=== PATIENT | female | born 1975 | race African-American/Black ===

== ENCOUNTER → 2016-07-24 | Outpatient (CLI) | payer BC | LOC: RAD 10:26 | PROVIDERS: ATTEND Internal Medicine Hematology & Oncology | DX: C50.412 Malignant neoplasm of upper-outer quadrant of left female breast (principal) | CPT/HCPCS: 78306; A9503; Q9969 ==

== ENCOUNTER 2016-07-25 08:11 | Day surgery (SDC) | payer BC ==
[2016-07-24 10:52] LABS: HEMATOCRIT 38.2 % (36.0-47.0); HEMOGLOBIN 12.8 g/dL (12.0-15.5); HGB HCT DIFFERENCE 0.2; MEAN CORPUSCULAR HEMOGLOBIN 30.9 pg (27.0-33.4); MEAN CORPUSCULAR HGB CONC 33.6 g/dL (32.0-36.0); MEAN CORPUSCULAR VOLUME 92 fl (80-97); RED BLOOD COUNT 4.16 10^6/uL (3.72-5.28); RED CELL DISTRIBUTION WIDTH 13.2 % (11.5-14.0); WHITE BLOOD COUNT 6.9 10^3/uL (4.0-10.5)
[~2016-07-25 08:11] MED LIST: ACETAMINOPHEN 325 MG TABLET PO PRN; FENTANYL CITRATE INJ/PF 100 MCG/2 ML AMPUL ONE; LIDOCAINE 0.5% INJ-PF (5 MG/ML) 50 ML SDV INJ PRN; MIDAZOLAM 2 MG/2 ML INJ ONE; PROPOFOL INJ 200 MG/20 ML VIAL IV ONE; RINGERS SOLUTION,LACTATED 1,000 ML IV PRN; VANCOMYCIN HCL 1,000 MG in DEXTROSE 5%-WATER 250 ML IV PRN
[2016-07-25] MEDS ORDERED: BUPIVACAINE HCL 0.25 % INJ/PF (2.5 MG/1 ML) 30 ML VIAL ONE (08:12)
[2016-07-25] MEDS ORDERED: MIDAZOLAM 2 MG/2 ML INJ ONE (09:41)
[2016-07-25] MEDS ORDERED: DIPHENHYDRAMINE HCL 50 MG/ML VIAL IV PRN (10:33)
[2016-07-25] MEDS ORDERED: FENTANYL CITRATE INJ/PF 100 MCG/2 ML AMPUL IV PRN ×3 (10:33)
[2016-07-25] MEDS ORDERED: MORPHINE SULFATE 10 MG/ML INJ IV PRN (10:33)
[2016-07-25] MEDS ORDERED: MEPERIDINE HCL/PF INJ 25 MG/1 ML DISP.SYRIN IV PRN (10:33)
[2016-07-25] MEDS ORDERED: PROMETHAZINE HCL INJ 25 MG/1 ML VIAL IV PRN ×2 (10:33)
--- NOTE | 2016-07-25 11:18 | Operative Report ---
Operative Report DATE OF SURGERY: 07/25/16 PREOPERATIVE DIAGNOSIS: Left breast cancer POSTOPERATIVE DIAGNOSIS: Left breast cancer OPERATION: Right subclavian single-lumen power port placement (permanent implanted central venous access placed via fluoroscopic guidance) SURGEON: SILVIA MARSHALL ANESTHESIA: LMAC TISSUE REMOVED OR ALTERED: None COMPLICATIONS: None ESTIMATED BLOOD LOSS: minimal INTRAOPERATIVE FINDINGS: None PROCEDURE: Informed consent was obtained. Patient was brought to the operating room placed operating table in the supine position. The procedure was done under LMAC. Patient's right neck and chest was prepped and draped in usual sterile fashion. Local anesthetic was administered. The right subclavian vein was entered without difficulty. Guidewire was placed into the central circulation under fluoroscopic guidance. A subcutaneous pocket was created in the patient' s right upper chest. Using a tunneling device single-lumen catheter was then tunneled between the 2 incisions. Introducer catheter was placed via the guidewire. The single lumen catheter was then fed into the central circulation through the introducer catheter under fluoroscopic guidance. The tip resided at the superior vena cava right atrial junction. The catheter was then attached to the PowerPort device which was then implanted into the subcutaneous pocket. The Port-A-Cath the which her blood and flushed easily. Hemostasis appeared good. The wounds were closed with deep dermal interrupted Vicryl sutures, followed by running subcuticular Monocryl suture. Patient tolerated procedure well with no apparent complications and was taken to the recovery area in stable condition. Stat portable chest x-ray was ordered in the recovery room.
[2016-07-25] MEDS ORDERED: RINGERS SOLUTION,LACTATED 1,000 ML IV PRN (11:22)
[2016-07-25] MEDS ORDERED: ONDANSETRON HCL INJ/PF 4 MG/2 ML SDV IV PRN (11:22)
[2016-07-25] MEDS ORDERED: OXYCODONE-ACETAMINOPHEN 5-325 MG TABLET PO PRN (11:22)
--- NOTE | 2016-07-25 11:22 | PDOC DISCHARGE SUMMARY ---
Discharge Summary (SDC) - Discharge Final Diagnosis: Left breast cancer. Date of Surgery: 07/25/16 Discharge Date: 07/25/16 Condition: Good Treatment or Instructions: Underwent right subclavian PowerPort placement. May discharge patient home when met discharge criteria. Follow-up with me in 2 weeks. Stay active but avoid strenuous activity. May shower in 2 days. Keep Steri-Strips on. May use Port-A-Cath. Prescriptions: Oxycodone HCl/Acetaminophen [Percocet 5-325 mg Tablet] 1 tab PO ASDIR PRN #15 tablet PRN Reason: Discharge Diet: As Tolerated Discharge Activity: Activity As Tolerated - Stay active but avoid strenuous activity. Report the Following to Your Physician Immediately: Fever over 101 Degrees, Unusual Bleeding, Redness, Drainage-Foul Smelling
[2016-07-25 12:58] VITALS: BP 134/101
== END 2016-07-25 13:10 | disposition home or self-care (01) ==
LOC: OROUT 08:11
PROVIDERS: ATTEND Surgery
PROC: 05H533Z Insertion of Infusion Device into Right Subclavian Vein, Percutaneous Approach (ICD-10-PCS; principal; 2016-07-25 09:45)
DX: C50.912 Malignant neoplasm of unspecified site of left female breast (principal); I10 Essential (primary) hypertension; E66.9 Obesity, unspecified; Z88.0 Allergy status to penicillin; Z79.899 Other long term (current) drug therapy; Z68.41 Body mass index [BMI] 40.0-44.9, adult
CPT/HCPCS: 36415 ×2; 84132; 85027; 86300; 71020; 71010; 77001; 36561; C1788; J2250; J3010; J7060; J2704; J3370; J1642; 532

== ENCOUNTER → 2016-07-29 | Outpatient (CLI) | payer BC | LOC: RAD 08:13 | PROVIDERS: ATTEND Specialist | DX: C50.412 Malignant neoplasm of upper-outer quadrant of left female breast (principal) | CPT/HCPCS: 71260; 74177; 82565 ==

== ENCOUNTER → 2016-08-01 | Outpatient (CLI) | payer BC ==
--- NOTE | 2016-08-04 13:19 | XCELERA REPORT ---
[address] [address] Transthoracic Echocardiogram Report Name: MASOOD LOPEZ Age: 40 yrs Gender: Female : 1975 Patient Status: Outpatient Patient Location: Study Date: 08/01/2016 03:12 PM Height: 64 in Weight: 260 lb BSA: 2.2 m2 Procedure: A complete two-dimensional transthoracic echocardiogram was performed (2D, M-mode, spectral and color flow Doppler). The study was technically adequate with some images being suboptimal in quality. Reason For Study: EVAL FOR USE OF CHEMO Ordering Physician: ROMAN TAMEZ Performed By: Radha Becerra Interpretation Summary The left ventricular ejection fraction is normal. There is mild concentric left ventricular hypertrophy. The left ventricle is grossly normal size. Doppler measurements suggest impaired left ventricular relaxation, which is associated with grade I/IV or mild diastolic dysfunction Wall motion cannot be accurately commented on, but no definite regional wall motion abnormalities noted. The right ventricle is grossly normal size. The right ventricular systolic function is normal. The right atrium is normal. The left atrial size is normal. There is no mitral valve stenosis. There is a trace amount of mitral regurgitation There is no aortic valve stenosis No aortic regurgitation is present. There is a trace or physiologic amount of tricuspid regurgitation Tricuspid regurgitation jet envelope not well defined to measure RV systolic pressure accurately. The aortic root is not well visualized but is probably normal size. The inferior vena cava appeared normal and decreased > 50% with respiration (RAP 5-10 mmHg) There is no pericardial effusion. MMode/2D Measurements \T\ Calculations RVDd: 2.5 cm LVIDd: 3.5 cm FS: 34.9 % Ao root diam: 3.2 cm IVSd: 1.2 cm LVIDs: 2.3 cm EDV(Teich): 50.9 ml LVPWd: 1.2 cm ESV(Teich): 17.7 ml Ao root area: 8.0 cm2 EF(Teich): 65.2 % LA dimension: 2.5 cm LVOT diam: 2.4 cm LVOT area: 4.5 cm2 Doppler Measurements \T\ Calculations MV E max tj: MV P1/2t max tj: Ao V2 max: LV V1 max P.3 cm/sec 68.3 cm/sec 119.9 cm/sec 3.6 mmHg MV A max tj: MV P1/2t: 52.0 msec Ao max PG: LV V1 max: 61.4 cm/sec MVA(P1/2t): 4.2 cm2 5.7 mmHg 95.0 cm/sec MV E/A: 1.1 MV dec slope: IBIS(V,D): 3.6 cm2 384.7 cm/sec2 MV dec time: 0.18 sec PA V2 max: 70.6 cm/sec PA max P.0 mmHg Left Ventricle The left ventricle is grossly normal size. There is mild concentric left ventricular hypertrophy. The left ventricular ejection fraction is normal. Doppler measurements suggest impaired left ventricular relaxation, which is associated with grade I/IV or mild diastolic dysfunction. Wall motion cannot be accurately commented on, but no definite regional wall motion abnormalities noted. Right Ventricle The right ventricle is grossly normal size. There is normal right ventricular wall thickness. The right ventricular systolic function is normal. Atria The right atrium is normal. The left atrial size is normal. Interarterial septum not well visualized and not well dopplered. Cannot comment on ASD/PFO presence. Mitral Valve The mitral valve is grossly normal. There is no mitral valve stenosis. There is a trace amount of mitral regurgitation. Aortic Valve The aortic valve is grossly normal. There is no aortic valve stenosis. No aortic regurgitation is present. Tricuspid Valve The tricuspid valve is not well visualized, but is grossly normal. There is no tricuspid stenosis. There is a trace or physiologic amount of tricuspid regurgitation. Tricuspid regurgitation jet envelope not well defined to measure RV systolic pressure accurately. Pulmonic Valve The pulmonic valve is not well visualized. Great Vessels The aortic root is not well visualized but is probably normal size. The inferior vena cava appeared normal and decreased > 50% with respiration (RAP 5-10 mmHg). Effusions There is no pericardial effusion. : ROMAN TAMEZ > Jose Stoner
== END ==
LOC: SP 15:01
PROVIDERS: ATTEND Specialist
DX: Z51.11 Encounter for antineoplastic chemotherapy (principal)
CPT/HCPCS: 93306

== ENCOUNTER 2016-08-07 10:20 | Emergency (ER) | payer BC ==
--- NOTE | 2016-08-07 11:00 | ER Document Report ---
ED General - General Chief Complaint: Fever Stated Complaint: DIZZINESS Time seen by provider: 10:56 Mode of Arrival: Ambulatory Information source: Patient Notes: 40-year-old female who reports subjective fever chills yesterday and lightheadedness this morning. Patient recently diagnosed with left breast cancer with she thinks 2 positive lymph nodes. She is supposed to start chemotherapy with Dr. Tamez in the near future. She had a right chest port placed by Dr. harman July 25 and she says it was accessed for a PET scan on the . She reports at some point around that time she noticed a little bit of pus calm from surgical site just cephalad to the poor location but she has not noted any redness swelling or tenderness over the port apparatus itself. She denies cough, shortness of breath, earache, sore throat, headache, chest pain, abdominal pain, back pain, nausea, vomiting, diarrhea, dysuria, numbness weakness to extremities, or syncope Physical Exam: General: Alert, appears well. HEENT: Normocephalic. Atraumatic. PERRLA. Extraocular movements intact. Oropharynx clear. Neck: Supple. Non-tender. Respiratory: No respiratory distress. Clear and equal breath sounds bilaterally. Cardiovascular: Regular rate and rhythm. Abdominal: Normal Inspection. Soft, non-tender. No distension. Normal Bowel Sounds. Back: Non-tender. No deformity or step off. Extremities: Moves all four extremities. 2+ pulses all 4 extremities no cyanosis or edema. No Homans sign bilaterally. Neurological: Speech clear mentation normal display trimmer strength 5 out of 5 equal both upper extremities motor function 5 out of 5 equal both lower extremities Psychological: Normal affect. Normal Mood. Skin: Warm. Dry. Normal color. The right chest port site is just medial to the axilla. The palpable apparatus is nontender with no erythema warmth or swelling. Steri-Strips are still in place and these were removed allow inspection of the surgical incisions. The most proximal one has proximate 3 mm of exposed subcutaneous tissue but there is no purulence expressed. The other incisions all look almost completely healed. There is no bleeding warmth or crepitance from any of the sites. TRAVEL OUTSIDE OF THE [place] IN LAST 30 DAYS: No - Related Data Allergies/Adverse Reactions: Penicillins Allergy (Severe, Verified 07/25/16 08:21) Hives cats Allergy (Severe, Uncoded 07/25/16 08:21) sinuses dust mites Allergy (Severe, Uncoded 07/25/16 08:21) itching Past Medical History - Social History Smoking Status: Never Smoker Family History: Other - Mother with lupus Father with prostate cancer - Past Medical History Cardiac Medical History: Reports: Hx Hypertension - on meds Denies: Hx Coronary Artery Disease, Hx Heart Attack Pulmonary Medical History: Denies: Hx Asthma, Hx Bronchitis, Hx COPD, Hx Pneumonia Neurological Medical History: Denies: Hx Cerebrovascular Accident, Hx Seizures Musculoskeltal Medical History: Denies Hx Arthritis Past Surgical History: Reports: Hx Hysterectomy, Other - Gastric sleeve - Immunizations Hx Diphtheria, Pertussis, Tetanus Vaccination: No Review of Systems - Review of Systems Constitutional: See HPI EENT: denies: Ear pain, Throat pain Cardiovascular: denies: Chest pain, Syncope Respiratory: denies: Cough, Short of breath Gastrointestinal: denies: Abdominal pain, Diarrhea, Nausea, Vomiting Genitourinary: denies: Burning, Dysuria Musculoskeletal: denies: Back pain, Muscle pain Hematologic/Lymphatic: denies: Swollen glands Neurological/Psychological: denies: Weakness, Numbness Physical Exam - Vital signs Vitals: Resp 23 H 08/07/16 10:49 Course - Re-evaluation Re-evalutation: 08/07/16 13:37 Patient reports feeling well now but she remains minimally tachycardic at 105. His evidence for UTI believe the source of her fever. A recent surgical site appears healthy with no signs or symptoms of infection. Blood cultures have been sent she refused additional cultures drawn for the port. He'll be discharged on oral antibiotics struck to follow with her physician Dr. Tamez and keep her appointment with Dr. hedrick as scheduled - Vital Signs Vital signs: Temp Pulse Resp BP Pulse Ox 98.6 F 103 H 19 99/61 L 97 08/07/16 11:14 08/07/16 11:14 08/07/16 12:00 08/07/16 11:14 08/07/16 12:00 - Laboratory Result Diagrams: 08/07/16 11:00 08/07/16 11:00 Laboratory results interpreted by me: 08/07/16 08/07/16 11:00 11:46 WBC 17.7 H Seg Neutrophils % 86.7 H Lymphocytes % 5.7 L Absolute Neutrophils 15.4 H Urine Protein 100 H Urine Blood MODERATE H Urine Nitrite POSITIVE H Ur Leukocyte Esterase LARGE H Urine Ascorbic Acid 40 H - Diagnostic Test Radiology reviewed: Image reviewed, Reports reviewed Discharge - Discharge Clinical Impression: Tachycardia UTI (urinary tract infection) Qualifiers: Urinary tract infection type: acute cystitis Hematuria presence: without hematuria Qualified Code(s): N30.00 - Acute cystitis without hematuria Condition: Stable Disposition: HOME, SELF-CARE Instructions: Urinary Tract Infection ([facility]), Trimethoprim-Sulfa ([facility]) Prescriptions: Sulfamethoxazole/Trimethoprim [Bactrim Ds Tablet] 1 each PO BID #20 tablet Referrals: ROMAN TAMEZ MD [Primary Care Provider] - Follow up as needed SILVIA MARSHALL MD [ACTIVE STAFF] - Follow up in 1 week
[2016-08-07 11:32] LABS: ABSOLUTE MONOCYTES (AUTO) 1.3 10^3/uL (0.1-1.4); ABSOLUTE NEUT (AUTO) 15.4 10^3/uL (1.7-8.2); BASOPHILS % (AUTO) 0.2 % (0-2); EOSINOPHILS % (AUTO) 0.1 % (0-6); LYMPHOCYTES % (AUTO) 5.7 % (13-45); MEAN CORPUSCULAR HEMOGLOBIN 30.6 pg (27.0-33.4); MEAN CORPUSCULAR HGB CONC 32.5 g/dL (32.0-36.0); MEAN CORPUSCULAR VOLUME 94 fl (80-97); MONOCYTES % (AUTO) 7.3 % (3-13); RED BLOOD COUNT 4.25 10^6/uL (3.72-5.28); RED CELL DISTRIBUTION WIDTH 13.8 % (11.5-14.0); SEGMENTED NEUTROPHILS % (AUTO) 86.7 % (42-78); WHITE BLOOD COUNT 17.7 10^3/uL (4.0-10.5)
[2016-08-07] MEDS: NORMAL SALINE 1000 ML 1,000 ML IV PRN ×2 (12:00→12:01)
[2016-08-07 12:24] LABS: APPEARANCE,URINE TURBID; BILIRUBIN,URINE NEGATIVE (NEGATIVE); GLUCOSE, URINE NEGATIVE (NEGATIVE); KETONES,URINE NEGATIVE (NEGATIVE); LEUKOCYTE ESTERASE,URINE LARGE (NEGATIVE); NITRITE,URINE POSITIVE (NEGATIVE); PROTEIN,URINE 100 mg/dL (NEGATIVE); URINE SPECIFIC GRAVITY 1.013; UROBILINOGEN,URINE NEGATIVE mg/dL (<2.0)
[2016-08-07 14:04] VITALS: BP 94/65
== END 2016-08-07 14:05 | disposition home or self-care (01) ==
LOC: ER 10:20
DX: N30.00 Acute cystitis without hematuria (principal); R00.0 Tachycardia, unspecified; R42 Dizziness and giddiness; C50.912 Malignant neoplasm of unspecified site of left female breast; I10 Essential (primary) hypertension; Z98.890 Other specified postprocedural states; Z88.0 Allergy status to penicillin; Z91.048 Other nonmedicinal substance allergy status; Z98.84 Bariatric surgery status
CPT/HCPCS: 99285; 96360; 96361; 36415; 87040; 87086; 85025; 87088; 81001; 87186; 71010; J7030

== ENCOUNTER → 2017-03-06 | Outpatient (CLI) | payer BC ==
[2017-03-06 12:16] LABS: ABSOLUTE EOSINOPHILS # (AUTO) 0.5 10^3/uL (0.0-0.6); ABSOLUTE LYMPHOCYTES (AUTO) 0.8 10^3/uL (0.5-4.7); ABSOLUTE MONOCYTES (AUTO) 0.4 10^3/uL (0.1-1.4); ABSOLUTE NEUT (AUTO) 1.6 10^3/uL (1.7-8.2); BASOPHILS % (AUTO) 0.4 % (0-2); EOSINOPHILS % (AUTO) 16.3 % (0-6); HEMOGLOBIN 11.8 g/dL (12.0-15.5); HGB HCT DIFFERENCE 0.4; LYMPHOCYTES % (AUTO) 24.8 % (13-45); MEAN CORPUSCULAR HEMOGLOBIN 30.2 pg (27.0-33.4); MEAN CORPUSCULAR HGB CONC 33.7 g/dL (32.0-36.0); MEAN CORPUSCULAR VOLUME 90 fl (80-97); MONOCYTES % (AUTO) 11.6 % (3-13); RED BLOOD COUNT 3.91 10^6/uL (3.72-5.28); RED CELL DISTRIBUTION WIDTH 14.8 % (11.5-14.0); SEGMENTED NEUTROPHILS % (AUTO) 46.9 % (42-78); WHITE BLOOD COUNT 3.3 10^3/uL (4.0-10.5)
== END ==
LOC: OD 10:20
PROVIDERS: ATTEND Radiology Radiation Oncology
DX: C50.412 Malignant neoplasm of upper-outer quadrant of left female breast (principal); C77.3 Secondary and unspecified malignant neoplasm of axilla and upper limb lymph nodes; Z17.1 Estrogen receptor negative status [ER-]
CPT/HCPCS: 36415; 85025

== ENCOUNTER 2017-03-16 07:05 | Emergency (ER) | payer BC ==
--- NOTE | 2017-03-16 07:16 | ER Document Report ---
HPI - HPI Patient complains to provider of: Elevated blood pressure Onset: Last week Onset/Duration: Gradual Pain Level: 3 Context: 41-year-old female that started radiation therapy for left breast cancer has noticed that her blood pressure has been higher since she started the radiation. This morning she was worried because her diastolic was above 100. She takes atenolol 50 mg and HIDA chlorothiazide 25 mg. There is been no recent change in her medications. Mild headache. No paresthesias. The first blood pressure here in the emergency room was already lower so she is not that worried she just wanted to make sure everything was okay. No chest pain or shortness of breath. Associated Symptoms: None Exacerbated by: Denies Relieved by: Denies Similar symptoms previously: Yes Recently seen / treated by doctor: No - ROS ROS below otherwise negative: Yes Systems Reviewed and Negative: Yes All other systems reviewed and negative Past Medical History - General Information source: Patient - Social History Smoking Status: Never Smoker Frequency of alcohol use: None Drug Abuse: None Lives with: Family Family History: Other - Mother with lupus Father with prostate cancer Patient has suicidal ideation: No Patient has homicidal ideation: No - Past Medical History Cardiac Medical History: Reports: Hx Hypertension - on meds Renal/ Medical History: Denies: Hx Peritoneal Dialysis Past Surgical History: Reports: Hx Hysterectomy, Other - Gastric sleeve - Immunizations Hx Diphtheria, Pertussis, Tetanus Vaccination: No Vertical Provider Document - CONSTITUTIONAL Agree With Documented VS: Yes Exam Limitations: No Limitations General Appearance: No Apparent Distress - INFECTION CONTROL TRAVEL OUTSIDE OF THE [place] IN LAST 30 DAYS: No - HEENT HEENT: Normal ENT Exam, Normocephalic - NECK Neck: Supple - RESPIRATORY Respiratory: Breath Sounds Normal, No Respiratory Distress O2 Sat by Pulse Oximetry: 97 - CARDIOVASCULAR Cardiovascular: Regular Rate, Regular Rhythm - MUSCULOSKELETAL/EXTREMETIES Musculoskeletal/Extremeties: MAEW, FROM - NEURO Level of Consciousness: Awake, Alert, Appropriate Motor/Sensory: No Motor Deficit, No Sensory Deficit - DERM Integumentary: Warm, Dry Course - Vital Signs Vital signs: Temp Pulse Resp BP Pulse Ox 97.9 F 71 18 142/96 H 97 03/16/17 07:09 03/16/17 07:09 03/16/17 07:09 03/16/17 07:09 03/16/17 07:09 Discharge - Discharge Clinical Impression: elevated blood pressure, hx hypertension Condition: Good Disposition: HOME, SELF-CARE Instructions: Beta Blockers ([facility]), High Blood Pressure ([facility]), Hydrochlorothiazide ([facility]) Additional Instructions: continue your medication low salt diet see dr. mccoy this week for possible change in your medication to er any concerns Please complete the patient satisfaction survey if you get one, and return it.. If you do not receive a survey, then you can go to the [facility] website, [email or web address] and place your comments about your very good care. Thank you very much. It was a pleasure being your medical provider today. Referrals: ROMAN TAMEZ MD [Primary Care Provider] - Follow up as needed
[2017-03-16 07:31] VITALS: BP 138/98
== END 2017-03-16 07:43 | disposition home or self-care (01) ==
LOC: ER 07:05
DX: I10 Essential (primary) hypertension (principal); C50.912 Malignant neoplasm of unspecified site of left female breast; R51 Headache; Z90.710 Acquired absence of both cervix and uterus; Z79.899 Other long term (current) drug therapy
CPT/HCPCS: 99283

== ENCOUNTER 2017-03-19 20:51 | Emergency (ER) | payer BC ==
[2017-03-19 21:24] VITALS: BP 130/89
== END 2017-03-19 23:21 | disposition left against medical advice (07) ==
LOC: ER 20:51
DX: Z53.9 Procedure and treatment not carried out, unspecified reason (principal); R06.02 Shortness of breath

== ENCOUNTER → 2017-09-18 | Outpatient (CLI) | payer BC ==
--- NOTE | 2017-09-18 17:54 | RADIOLOGY REPORT (SQ) ---
EXAM DESCRIPTION: CHEST PA/LAT COMPLETED DATE/TIME: 09/18/2017 5:44 pm REASON FOR STUDY: SHORTNESS OF BREATH COMPARISON: 07/25/2016 EXAM PARAMETERS: NUMBER OF VIEWS: two views TECHNIQUE: Digital Frontal and Lateral radiographic views of the chest acquired. RADIATION DOSE: NA LIMITATIONS: none FINDINGS: LUNGS AND PLEURA: No acute opacities, masses or pneumothorax. No pleural effusion. MEDIASTINUM AND HILAR STRUCTURES: No masses or contour abnormalities. HEART AND VASCULAR STRUCTURES: Heart normal size. No evidence for failure. BONES: No acute findings. HARDWARE: None in the chest. OTHER: No other significant finding. IMPRESSION: No acute findings. TECHNICAL DOCUMENTATION: JOB ID: [id number] [employer]- All Rights Reserved Reading location - IP/workstation name: [email or web address]
== END ==
LOC: RAD 17:04
PROVIDERS: ATTEND Internal Medicine Hematology & Oncology
DX: R06.02 Shortness of breath (principal)
CPT/HCPCS: 71046